=== PATIENT | male | born 1975 | race Caucasian/White ===

== ENCOUNTER 2019-10-21 04:33 | Inpatient (IN) ==
[2019-10-21] MEDS ORDERED: HEPARIN DRIP 25,000 UNITS/500 ML PREMIX IV ONE (04:42)
[2019-10-21] MEDS ORDERED: HEPARIN 5,000 UNIT/1 ML VIAL ONE ×2 (04:42→05:14)
[2019-10-21] MEDS ORDERED: HEPARIN 5,000 UNIT/1 ML VIAL IV ONE (04:52)
[2019-10-21] MEDS ORDERED: LIDOCAINE 1% 20 ML VIAL ONE (04:52)
[2019-10-21] MEDS ORDERED: fentaNYL 100 MCG/2 ML VIAL ONE (04:52)
[2019-10-21] MEDS ORDERED: MIDAZOLAM 2 MG/2 ML VIAL ONE (04:52)
[2019-10-21] MEDS ORDERED: HEPARIN 1,000 UNIT/1 ML VIAL IV STA (04:52)
[2019-10-21] MEDS ORDERED: ASPIRIN 325 MG TABLET PO STA (04:52)
[2019-10-21] MEDS ORDERED: HEPARIN DRIP 25,000 UNITS/500 ML PREMIX IV SCH ×2 (05:00)
[2019-10-21 05:05] LABS: Basophils # 0.1 10*3/uL (0.0-0.2); Basophils % 0.3 % (0.0-0.8); Eosinophils # 0.1 10*3/uL (0.0-0.87); Eosinophils % 0.5 % (0.00-10.9); Hematocrit 42.5 VOL% (42.0-52.0); Hemoglobin 14.5 GM/DL (14.0-18.0); Immature Granulocytes Absolute 0.18 #; Lymphocytes # 3.9 10*3/uL (1.4-4.0); Lymphocytes % 20.5 % (21.2-54.2); Mean Corpuscular HGB Conc 34.1 GM/DL (32-36); Mean Corpuscular Volume 89.9 FL (87-102); Mean Platelet Volume 9.8 FL (9.6-12.0); Monocytes % 9.2 % (1.7-12.7); Neutrophils % 68.5 % (38.7-73.9); Platelet Count 273 T/CUMM (130-400); Red Blood Count 4.73 MC/CUMM (3.8-5.5); Red Cell Distribution Width 12.7 % (9.3-17.3); White Blood Count 18.9 T/CUMM (4-12)
[2019-10-21 05:09] LABS: PT Patient Result 10.7 SECS (9.6-12.2)
[2019-10-21] MEDS ORDERED: TIROFIBAN 5,000 MCG/100 ML PREMIX IV ONE (05:15)
[2019-10-21 05:17] LABS: Albumin 3.6 G/DL (3.4-5.0); Bilirubin,Total 0.5 MG/DL (0.2-1.0); Calcium 8.3 MG/DL (8.5-10.1); Osmolality,Calculated 285.7 MOS/KG (273-304); Total Protein 6.9 G/DL (6.4-8.3)
[2019-10-21] MEDS ORDERED: TICAGRELOR 90 MG TABLET ONE (05:51)
[2019-10-21] MEDS ORDERED: TIROFIBAN 5,000 MCG/100 ML PREMIX IV SCH (06:30)
[2019-10-21] MEDS ORDERED: DEXTROSE 10% 25 GM/250 ML BAG IV PRN (06:31)
[2019-10-21] MEDS ORDERED: fentaNYL 100 MCG/2 ML VIAL IV PRN (06:31)
[2019-10-21] MEDS ORDERED: ONDANSETRON 4 MG/2 ML VIAL IV PRN (06:31)
[2019-10-21] MEDS ORDERED: GLUCAGON 1 MG VIAL IM PRN (06:31)
[2019-10-21] MEDS ORDERED: SODIUM CHLORIDE 0.9% 1,000 ML IV SCH ×2 (07:00→12:00)
[2019-10-21] MEDS: carvediloL 3.125 MG TABLET PO SCH ×3 (07:40→20:21)
[2019-10-21 07:43] LABS: Risk Ratio 5.48; VLDL CHOLESTEROL 37.6 MG/DL
[2019-10-21 08:39] LABS: CKMB % 9.1 %
[2019-10-21 08:43] LABS: Troponin I 2.19 NG/ML (0.00-0.045)
[2019-10-21] MEDS: TICAGRELOR 90 MG TABLET PO SCH ×2 (09:25→20:22)
[2019-10-21] MEDS: PANTOPRAZOLE 20 MG TABLET PO SCH (09:25)
[2019-10-21] MEDS: ASPIRIN CHEW 81 MG TABLET PO SCH (09:27)
[2019-10-21 10:11] LABS: PT Patient Result 10.8 SECS (9.6-12.2)
[2019-10-21 10:20] LABS: Partial Thromboplastin Time 62.2 SECS (20.8-36.0)
[2019-10-21] MEDS: POTASSIUM CHLORIDE RIDER 10 MEQ in PREMIX 1 EACH IV PRN (12:05)
[2019-10-21] MEDS ORDERED: MAGNESIUM SULF RIDER 2 GM in PREMIX 1 EACH IV ONE (12:06)
[2019-10-21 15:12] LABS: CKMB % 13.4 %
[2019-10-21 16:13] LABS: PT Patient Result 10.7 SECS (9.6-12.2)
[2019-10-21 16:33] LABS: Partial Thromboplastin Time 43.4 SECS (20.8-36.0)
[2019-10-21] MEDS: ROSUVASTATIN 20 MG TABLET PO SCH (20:22)
[2019-10-21 23:21] LABS: CKMB % 13.4 %
[2019-10-22 04:57] LABS: Basophils % 0.1 % (0.0-0.8); Eosinophils % 0.2 % (0.00-10.9); Hematocrit 40.8 VOL% (42.0-52.0); Hemoglobin 13.5 GM/DL (14.0-18.0); Immature Granulocytes % 0.4 %; Immature Granulocytes Absolute 0.04 #; Lymphocytes # 1.5 10*3/uL (1.4-4.0); Lymphocytes % 13.5 % (21.2-54.2); Mean Corpuscular HGB Conc 33.1 GM/DL (32-36); Mean Corpuscular Volume 92.9 FL (87-102); Monocytes % 9.9 % (1.7-12.7); Neutrophils % 75.9 % (38.7-73.9); Platelet Count 153 T/CUMM (130-400); Red Blood Count 4.39 MC/CUMM (3.8-5.5); Red Cell Distribution Width 13.2 % (9.3-17.3); White Blood Count 11.4 T/CUMM (4-12)
[2019-10-22 05:12] LABS: Albumin 2.9 G/DL (3.4-5.0); Bilirubin,Total 0.9 MG/DL (0.2-1.0); Osmolality,Calculated 271.1 MOS/KG (273-304); Total Protein 6.5 G/DL (6.4-8.3)
[2019-10-22 05:31] LABS: Platelet Estimate Decreased; Polychromasia Few
[2019-10-22] MEDS: POTASSIUM CHLORIDE RIDER 10 MEQ in PREMIX 1 EACH IV PRN ×2 (05:32→06:29)
[2019-10-22] MEDS: PANTOPRAZOLE 20 MG TABLET PO SCH (08:17)
[2019-10-22] MEDS: TICAGRELOR 90 MG TABLET PO SCH (08:18)
[2019-10-22] MEDS: ASPIRIN CHEW 81 MG TABLET PO SCH (08:18)
[2019-10-22] MEDS: carvediloL 3.125 MG TABLET PO SCH (08:18)
[2019-10-22] MEDS: ALBUTEROL/IPRATROPIUM 3 ML NEB RESP TX SCH ×3 (12:10→19:45)
[2019-10-22] MEDS ORDERED: CLOPIDOGREL 300 MG TABLET PO ONE (13:45)
[2019-10-22] MEDS: carvediloL 6.25 MG TABLET PO SCH (16:30)
[2019-10-22] MEDS: LOSARTAN 25 MG TABLET PO SCH (16:30)
[2019-10-22 17:51] LABS: Allen Test Positive
[2019-10-22 17:53] LABS: ABG Base Excess 0.1 MMOL/L (-2.5-2.5); ABG HCO3 24.3 MMOL/L (20-26); ABG Oxygen Saturation 87.6 % (95-100); ABG PCO2 27.1 MM HG (35-48); ABG TCO2 18.4 MMOL/L (23-27)
[2019-10-22] MEDS: ROSUVASTATIN 20 MG TABLET PO SCH (21:00)
[2019-10-23 04:28] LABS: Basophils % 0.2 % (0.0-0.8); Eosinophils % 0.1 % (0.00-10.9); Hematocrit 38.4 VOL% (42.0-52.0); Hemoglobin 13.3 GM/DL (14.0-18.0); Immature Granulocytes % 0.7 %; Immature Granulocytes Absolute 0.09 #; Lymphocytes # 1.7 10*3/uL (1.4-4.0); Lymphocytes % 12.5 % (21.2-54.2); Mean Corpuscular HGB Conc 34.6 GM/DL (32-36); Mean Corpuscular Volume 89.7 FL (87-102); Mean Platelet Volume 10.6 FL (9.6-12.0); Monocytes % 8.6 % (1.7-12.7); Neutrophils % 77.9 % (38.7-73.9); Platelet Count 192 T/CUMM (130-400); Red Blood Count 4.28 MC/CUMM (3.8-5.5); Red Cell Distribution Width 12.9 % (9.3-17.3); White Blood Count 13.5 T/CUMM (4-12)
[2019-10-23 04:42] LABS: Calcium 8.2 MG/DL (8.5-10.1); Osmolality,Calculated 271.1 MOS/KG (273-304)
[2019-10-23] MEDS: ALBUTEROL/IPRATROPIUM 3 ML NEB RESP TX SCH ×5 (08:11→20:49)
[2019-10-23] MEDS: PANTOPRAZOLE 20 MG TABLET PO SCH (10:15)
[2019-10-23] MEDS: LOSARTAN 25 MG TABLET PO SCH ×2 (10:16→21:50)
[2019-10-23] MEDS: carvediloL 6.25 MG TABLET PO SCH (10:16)
[2019-10-23] MEDS: ASPIRIN CHEW 81 MG TABLET PO SCH (10:16)
[2019-10-23] MEDS: CLOPIDOGREL 75 MG TABLET PO SCH (10:16)
[2019-10-23] MEDS ORDERED: carvediloL 6.25 MG TABLET PO ONE (14:44)
[2019-10-23] MEDS ORDERED: POTASSIUM CHLORIDE 20 MEQ TABLET PO ONE (14:51)
[2019-10-23] MEDS ORDERED: MAGNESIUM SULF RIDER 2 GM in PREMIX 1 EACH IV ONE (14:51)
[2019-10-23] MEDS ORDERED: ACETAMINOPHEN 325 MG TABLET PO PRN (16:51)
[2019-10-23] MEDS ORDERED: ALUMINUM/MAGNES/SIMETH MAX STR 30 ML UDCUP PO PRN (16:51)
[2019-10-23] MEDS ORDERED: ZALEPLON 5 MG CAPSULE PO PRN (16:51)
[2019-10-23] MEDS ORDERED: PROMETHAZINE 25 MG TABLET PO PRN (16:51)
[2019-10-23] MEDS: carvediloL 12.5 MG TABLET PO SCH (21:50)
[2019-10-23] MEDS: ROSUVASTATIN 20 MG TABLET PO SCH (21:50)
[2019-10-24 04:21] LABS: Allen Test Positive
[2019-10-24 04:33] LABS: ABG Base Excess 0.8 MMOL/L (-2.5-2.5); ABG HCO3 25.1 MMOL/L (20-26); ABG Oxygen Saturation 93.9 % (95-100); ABG PCO2 33.6 MM HG (35-48); ABG PH 7.462 (7.35-7.45); ABG PO2 63.5 MM HG (80-95); ABG TCO2 20.9 MMOL/L (23-27)
[2019-10-24 04:36] LABS: Basophils % 0.2 % (0.0-0.8); Eosinophils % 0.3 % (0.00-10.9); Hematocrit 37.7 VOL% (42.0-52.0); Hemoglobin 12.8 GM/DL (14.0-18.0); Immature Granulocytes % 0.6 %; Immature Granulocytes Absolute 0.07 #; Lymphocytes # 2.6 10*3/uL (1.4-4.0); Lymphocytes % 20.4 % (21.2-54.2); Mean Corpuscular Volume 90.8 FL (87-102); Mean Platelet Volume 10.3 FL (9.6-12.0); Monocytes % 9.5 % (1.7-12.7); Platelet Count 197 T/CUMM (130-400); Red Blood Count 4.15 MC/CUMM (3.8-5.5); Red Cell Distribution Width 12.8 % (9.3-17.3); White Blood Count 12.6 T/CUMM (4-12)
[2019-10-24 05:26] LABS: Albumin 2.6 G/DL (3.4-5.0); Bilirubin,Total 1.2 MG/DL (0.2-1.0); Total Protein 6.7 G/DL (6.4-8.3)
[2019-10-24] MEDS: ALBUTEROL/IPRATROPIUM 3 ML NEB RESP TX SCH ×3 (08:10→14:42)
[2019-10-24] MEDS: CLOPIDOGREL 75 MG TABLET PO SCH (09:46)
[2019-10-24] MEDS: LOSARTAN 25 MG TABLET PO SCH (09:47)
[2019-10-24] MEDS: carvediloL 12.5 MG TABLET PO SCH (09:47)
[2019-10-24] MEDS: PANTOPRAZOLE 20 MG TABLET PO SCH (09:47)
[2019-10-24] MEDS: ASPIRIN CHEW 81 MG TABLET PO SCH (09:48)
[2019-10-24 12:59] LABS: ABG Base Excess -1.4 MMOL/L (-2.5-2.5); ABG HCO3 23.2 MMOL/L (20-26); ABG Oxygen Saturation 94.2 % (95-100); ABG PCO2 28.2 MM HG (35-48); ABG PH 7.477 (7.35-7.45); ABG PO2 62.3 MM HG (80-95); ABG TCO2 18.1 MMOL/L (23-27)
[2019-10-24 13:47] VITALS: BP 108/62
[2019-10-24] MEDS ORDERED: BUDESONIDE/FORMOTEROL 160-4.5 INHALER 6 GM INH SCH (21:00)
== END 2019-10-24 15:33 | disposition home or self-care (01) | DRG 246 ==
LOC: N.ED 04:33 → N.CC 04:50 → N.EDINP 05:00 → N.CC 05:10 → N.TELEN 10-22 17:47
PROVIDERS: ADMIT Internal Medicine Cardiovascular Disease; ATTEND Internal Medicine Cardiovascular Disease
PROC: CLCCHCL (ICD-10-PCS; 2019-10-21 06:00)